=== PATIENT | male | born 1960 | race African-American/Black ===

== ENCOUNTER 2019-02-11 11:30 | Day surgery (SDC) ==
--- NOTE | 2019-02-09 10:42 | EKG Report ---
Test Performed on : 02/09/2019 10:15:56 AM Test Reason : PAT Blood Pressure : / mmHG Vent. Rate : 066 BPM Atrial Rate : 066 BPM P-R Int : 170 ms QRS Dur : 092 ms QT Int : 350 ms P-R-T Axes : 054 004 026 degrees QTc Int : 366 ms Normal sinus rhythm. Moderate voltage criteria for LVH, may be normal variant Borderline ECG No previous ECGs available Confirmed by Noel WALKER, Obie Salazar ([id number]) on 02/10/2019 8:20:48 AM
[2019-02-09 11:36] LABS: HEMATOCRIT 42.6 % (42.0-52.0); HEMOGLOBIN 14.6 g/dL (14.0-18.0); MCH 27.6 PG (27-31); MCHC 34.3 g/dL (33-37); MCV 80.5 FL (81-99); MPV 11.3 FL (7.4-10.4); RBC 5.29 XMIL (4.7-6.1); RDW 13.2 % (11.5-14.5); WBC 7.09 X1000 (4.8-10.8)
[2019-02-09 12:09] LABS: AGAP 12; BUN 15 mg/dL (8-22); CALCIUM 10.4 mg/dL (8.8-10.2); CHLORIDE 98 mmol/L (98-107); COSMO 273; CREATININE 0.9 mg/dL (0.7-1.2); ESTIMATED GFR > 60; GLUCOSE 169 mg/dL (70-104); SODIUM 134 mmol/L (136-145); TCO2 24 mmol/L (25-35)
[2019-02-11] MEDS ORDERED: PEPCID ONE (11:51)
[2019-02-11] MEDS ORDERED: LR 1,000 ML ONE ×2 (11:51→16:01)
[2019-02-11] MEDS ORDERED: REGLAN ONE (11:51)
[2019-02-11] MEDS ORDERED: KEFZOL 1 GM/D5W 2 GM/100 ML IVPB ONE (11:51)
[2019-02-11] MEDS ORDERED: DIPRIVAN 1% ONE (13:47)
[2019-02-11] MEDS ORDERED: FENTANYL ONE (13:51)
[2019-02-11] MEDS ORDERED: XYLOCAINE-MPF 2% ONE (13:52)
[2019-02-11] MEDS ORDERED: ZOFRAN ONE (14:32)
[2019-02-11] MEDS ORDERED: BACITRACIN OINTMENT ONE (15:11)
[2019-02-11] MEDS ORDERED: NORCO-10 ONE (15:42)
--- NOTE | 2019-02-11 18:16 | OPERATIVE NOTE ---
PROCEDURE DATE: 02/11/2019 SURGEON: Mahesh Tidwell MD PREOPERATIVE DIAGNOSIS: Multiple skin lesions of the scrotum. POSTOPERATIVE DIAGNOSIS: Multiple skin lesions of the scrotum. PROCEDURE PERFORMED: 1. Excisional biopsy of a scrotal skin lesion. 2. Fulguration of greater than 100 scrotal skin lesions. ANESTHESIA: General via laryngeal mask. FINDINGS: Greater than 100 small discrete raised lesions that over half look like condyloma. The other half had a smooth domed appearance. With laser ablation, there was a central vascular core that had some bleeding. INDICATION FOR PROCEDURE: This 58-year-old male has a long history of these scrotal skin lesions, and he states they do cause some irritation. DESCRIPTION OF PROCEDURE: After informed consent was obtained from the patient and him receiving IV antibiotics, he was taken the main OR, placed in the supine position. General anesthesia via laryngeal mask was achieved. He was then placed in the low lithotomy position and prepped and draped in the usual sterile fashion for penile, scrotal, and perineal surgery. One of the lesions was grasped with an Adson and the Metzenbaum scissors was used to excise the lesion in total. This was sent to Pathology in its own container. The CO2 laser set at 10 cabrera was then used to cauterize these multiple lesions on the scrotum. Again, counting was stopped after we reached 100. The lesions would bleed when the laser hit the central core. After the lesions were ablated with the laser, the Bovie cautery was used to achieve hemostasis. Both sides of the scrotum were done. At completion, there were no bleeding spots noted. The wound was dressed with bacitracin ointment. Xeroform gauze was placed. Fluffed-up 4 x 4 gauze was used to cover the Xeroform gauze and then mesh briefs were placed. Estimated blood loss 20 mL. He tolerated the procedure well and was taken to the recovery room in good condition. He will be observed overnight to ensure the bleeding does not start. cc: Mahesh Tidwell MD
[2019-02-11] MEDS: LR 1,000 ML IV SCH (18:45)
[2019-02-12] MEDS: LR 1,000 ML IV SCH (02:11)
[2019-02-12] MEDS ORDERED: FLEXERIL PO PRN (02:17)
[2019-02-12] MEDS ORDERED: PHENERGAN IV PRN (03:10)
[2019-02-12] MEDS ORDERED: NORCO-7.5 PO PRN (03:15)
[2019-02-12] MEDS ORDERED: NORCO-5 PO PRN (03:15)
[2019-02-12] MEDS ORDERED: SODIUM CHLORIDE 0.9% INJ PRN (03:15)
[2019-02-12] MEDS ORDERED: NORCO-10 PO PRN (03:15)
[2019-02-12 07:34] VITALS: BP 126/86
[2019-02-12] MEDS ORDERED: PNEUMOVAX 23 IM ONE (07:43)
[2019-02-12] MEDS ORDERED: JANUVIA PO SCH (09:00)
[2019-02-12] MEDS ORDERED: NORVASC PO SCH (09:00)
[2019-02-12] MEDS ORDERED: PRINIVIL PO SCH (09:00)
[2019-02-12] MEDS ORDERED: ASPIRIN PO SCH (09:00)
[2019-02-12] MEDS ORDERED: MAXZIDE-25 PO SCH (09:00)
[2019-02-12] MEDS ORDERED: FLONASE NAS SCH (09:00)
[2019-02-12] MEDS ORDERED: AMARYL PO SCH (09:00)
[2019-02-12] MEDS ORDERED: GLUCOPHAGE PO SCH (09:00)
[2019-02-12] MEDS ORDERED: ZANTAC PO SCH (09:00)
[2019-02-12] MEDS ORDERED: NEURONTIN PO SCH (21:00)
[2019-02-24] MEDS ORDERED: PATIENT'S OWN MED IM SCH (10:00)
== END 2019-02-12 08:44 | disposition home or self-care (01) ==
LOC: 4N 11:30 → OR 11:30
PROVIDERS: ATTEND Urology
CPT/HCPCS: 80048; 82948; 85027; 88304; 88313; 93005; 93010; 94799; A9270; J0690; J2405; J3010; J7120; XXXXX